=== PATIENT | male | born 1955 | race African-American/Black ===

== ENCOUNTER 2016-10-23 10:38 | Inpatient (IN) | payer OTHER ==
[~2016-10-23] VITALS: Ht 180.3 cm; Wt 105.4 kg
[2016-10-23 12:39] LABS: microscopic required? NO
[2016-10-23 12:44] LABS: UA SPECIFIC GRAVITY 1.025 (1.005-1.035); urine erythrocyte NEGATIVE (NEGATIVE)
[2016-10-23 12:55] LABS: CALCIUM 9.1 mg/dL (8.5-10.1); CARBON DIOXIDE 27.7 mmol/L (21-32); CREATININE SERUM 1.5 mg/dL (0.7-1.3); POTASSIUM SERUM 3.8 mmol/L (3.5-5.1)
[2016-10-23 12:59] LABS: ALBUMIN 4.2 g/dL (3.4-5.0); BILIRUBIN TOTAL 0.3 mg/dL (0.20-1.00); TOTAL PROTEIN, SERUM 7.8 g/dL (6.4-8.2)
[2016-10-23 13:00] LABS: BASOPHIL % 0.5 % (0-2); PLATELET COUNT 297 x10^3mcL (130-400)
[2016-10-23] MEDS ORDERED: PHEDML (14:49)
[2016-10-23] MEDS ORDERED: SUDOGEST30 MG (14:49)
[2016-10-23] MEDS ORDERED: CARDURA2 MG PO (14:50)
[2016-10-23] MEDS ORDERED: ATORVASTATIN CA40 M1 PO (14:50)
[2016-10-23] MEDS ORDERED: NORVASC2.5 MG PO (14:50)
[2016-10-23] MEDS ORDERED: BACLOFEN1 POW (14:50)
[2016-10-23] MEDS ORDERED: RANITIDINE15 MG/M1 (14:50)
[2016-10-23] MEDS ORDERED: ADULT LOW DOSE81 MG (14:50)
[2016-10-23] MEDS ORDERED: TOPROL XL25 MG (14:50)
[2016-10-23] MEDS ORDERED: FENOFIBRATE54 M1 PO (14:50)
[2016-10-23] MEDS ORDERED: ADV200 (14:50)
[2016-10-23 16:20] VITALS: BP 150/82
[2016-10-23 17:29] LABS: CHOLESTEROL/HDL RATIO 4.4
[2016-10-23 18:07] LABS: AMPHETAMINE QUAL UR NONE DETECTED (NEG <=1000)
[2016-10-23 21:15] LABS: FREE T4 1.03 ng/dL (0.76-1.46); FREE THYROXINE INDEX 2.9 ug/dL (1.4-4.5); T4(THYROXINE) 8.7 ug/dL (4.7-13.3)
[2016-10-23 21:20] LABS: T3 TOTAL 1.03 ng/mL
[2016-10-23 22:08] VITALS: BP 135/69
[2016-10-23] MEDS ORDERED: BACLOFEN10 MG PO (22:13)
[2016-10-23] MEDS ORDERED: CLOTRIMAZOLE 1% TOP (22:16)
[2016-10-23] MEDS ORDERED: BENADRYL ALLERG25 M1 PO (22:17)
[2016-10-23] MEDS ORDERED: IBUPROFEN400 MG PO (22:22)
[2016-10-23] MEDS ORDERED: ZESTRIL20 MG PO (22:24)
[2016-10-23] MEDS ORDERED: METOPROLOL SUCC50 M2 PO (22:25)
[2016-10-23] MEDS ORDERED: ZANTAC 150150 MG PO (22:27)
[2016-10-24 05:48] VITALS: BP 137/56
[2016-10-24 06:02] LABS: BASOPHIL % 0.4 % (0-2); PLATELET COUNT 277 x10^3mcL (130-400)
[2016-10-24 06:26] LABS: CALCIUM 9.2 mg/dL (8.5-10.1); CARBON DIOXIDE 25.1 mmol/L (21-32); CREATININE SERUM 1.3 mg/dL (0.7-1.3); POTASSIUM SERUM 3.7 mmol/L (3.5-5.1)
[2016-10-24 06:36] LABS: RED CELL DISTRIBUTION WIDTH 14.9 % (11.5-14.5)
[2016-10-24 10:06] VITALS: BP 121/82
[2016-10-24 13:23] VITALS: BP 160/77
[2016-10-24 17:12] VITALS: BP 144/76
[2016-10-24 22:32] VITALS: BP 135/64
[2016-10-25 05:51] VITALS: BP 143/65
[2016-10-25 10:53] VITALS: BP 125/64
[2016-10-25] MEDS ORDERED: TOPROL XL25 MG PO ×2 (13:15→14:15)
[2016-10-25] MEDS ORDERED: FLE10 PO (13:43)
[2016-10-25] MEDS ORDERED: NORCO1 TA2 PO (13:44)
[2016-10-25 15:12] VITALS: BP 148/70
[2016-10-25 16:02] VITALS: BP 148/70
== END 2016-10-25 17:40 | disposition home or self-care (01) ==
LOC: ED 10:38 → DU 15:15
PROVIDERS: Emergency Medicine; ADMIT Family Medicine
DX: K80.20 Calculus of gallbladder without cholecystitis without obstruction (principal); N17.0 Acute kidney failure with tubular necrosis; N18.3 Chronic kidney disease, stage 3 (moderate); I12.9 Hypertensive chronic kidney disease with stage 1 through stage 4 chronic kidney disease, or unspecified chronic kidney disease; R00.1 Bradycardia, unspecified; D64.9 Anemia, unspecified; F12.10 Cannabis abuse, uncomplicated; M47.896 Other spondylosis, lumbar region; E78.5 Hyperlipidemia, unspecified; N40.0 Benign prostatic hyperplasia without lower urinary tract symptoms; K57.30 Diverticulosis of large intestine without perforation or abscess without bleeding; Z68.32 Body mass index [BMI] 32.0-32.9, adult
CPT/HCPCS: 83880; 84439; J1644; J1885; J2270; J7030; Q0092; Q0163; Q9967

== ENCOUNTER 2016-12-04 12:12 | Emergency (ER) | payer OTHER ==
[~2016-12-04] VITALS: Ht 180.3 cm; Wt 101.8 kg
[~2016-12-04 12:12] MED LIST: ADULT LOW DOSE81 MG; ADV200; ATORVASTATIN CA40 M1 PO; BACLOFEN1 POW; BACLOFEN10 MG PO; BENADRYL ALLERG25 M1 PO; CARDURA2 MG PO; CLOTRIMAZOLE 1% TOP; FENOFIBRATE54 M1 PO; FLE10 PO; IBUPROFEN400 MG PO; METOPROLOL SUCC50 M2 PO; NORCO1 TA2 PO; NORVASC2.5 MG PO; PHEDML; RANITIDINE15 MG/M1; SUDOGEST30 MG; TOPROL XL25 MG; TOPROL XL25 MG PO; ZANTAC 150150 MG PO; ZESTRIL20 MG PO
[2016-12-04 15:34] VITALS: BP 153/74
== END 2016-12-04 15:34 | disposition home or self-care (01) ==
LOC: ED 12:12
DX: G51.0 Bell's palsy (principal); I10 Essential (primary) hypertension; E11.9 Type 2 diabetes mellitus without complications; E78.00 Pure hypercholesterolemia, unspecified
CPT/HCPCS: J7512